=== PATIENT | female | born 1990 | race Caucasian/White ===

== ENCOUNTER 2017-06-12 19:23 | Emergency (ER) | payer SELFPAY | END 2017-06-12 21:36 | disposition home or self-care (01) | LOC: D.ER 19:23 | DX: F41.9 Anxiety disorder, unspecified (principal); S69.91XA Unspecified injury of right wrist, hand and finger(s), initial encounter; X58.XXXA Exposure to other specified factors, initial encounter; Y93.89 Activity, other specified; Y92.029 Unspecified place in mobile home as the place of occurrence of the external cause; F17.200 Nicotine dependence, unspecified, uncomplicated ==

== ENCOUNTER 2017-08-29 10:06 | Emergency (ER) | payer SELFPAY ==
[2017-08-29 10:42] LABS: BASOPHILS 0.4 % (0-2); EOSINOPHILS 3.6 % (0-7); HEMATOCRIT 39.9 % (36.0-48.0); HEMOGLOBIN 14.2 g/dL (12-16); LYMPHOCYTES 26.5 % (15-50); MCHC 35.6 g/dL (31.0-37.0); MCV 89.9 fL (80.0-100.0); MEAN PLATELET VOLUME 9.4 fL (7.4-10.4); MONOCYTES 7.1 % (2-11); NEUTROPHILS 62.4 % (40-80); PLATELET COUNT 206 10x3/uL (130-400); RBC 4.44 10x6/uL (4.00-5.40); RDW 12.1 % (11.5-14.5); WBC 4.9 10x3/uL (4.8-10.8)
[2017-08-29 10:59] LABS: HCG SERUM NEGATIVE (NEGATIVE)
[2017-08-29 11:02] LABS: ALBUMIN 3.8 g/dL (3.4-5.0); ALKALINE PHOSPHATASE 43 U/L (46-116); ALT (SGPT) 22 U/L (10-68); BILIRUBIN - TOTAL 1.26 mg/dL (0.2-1.3); CALC OSMOLALITY 283 mosm/kg (275-300); CALCIUM 8.7 mg/dL (8.5-10.1); CARBON DIOXIDE 28.4 mmol/L (21.0-32.0); CHLORIDE - SERUM 106 mmol/L (98-107); CREATININE - SERUM 0.8 mg/dL (0.6-1.3); GLUCOSE 100 mg/dL (74-106); POTASSIUM - SERUM 4.3 mmol/L (3.5-5.1); SODIUM 142 mmol/L (136-145); UREA NITROGEN 15 mg/dL (7-18); eGFR NON AFRICAN AMERICAN > 90 mL/min (90-120)
[2017-08-29 12:20] LABS: APPEARANCE CLEAR (CLEAR); BILIRUBIN NEGATIVE (NEGATIVE); COLOR YELLOW (YELLOW); GLUCOSE NEGATIVE (NEGATIVE); KETONE NEGATIVE (NEGATIVE); NITRITE NEGATIVE (NEGATIVE); PROTEIN NEGATIVE (NEGATIVE); UROBILINOGEN NORMAL (NORMAL)
[2017-08-29 12:24] LABS: RED CELLS - URINE 0-5 /hpf (0-5)
[2017-08-29 12:25] LABS: BACTERIA FEW /hpf (NONE SEEN); MUCUS >1+ /lpf (NONE SEEN)
[2017-08-29 12:27] LABS: SPERMATOZOA OCC /hpf (NONE SEEN)
== END 2017-08-29 15:40 | disposition home or self-care (01) ==
LOC: D.ER 10:06
PROVIDERS: Emergency Medicine
DX: N83.209 Unspecified ovarian cyst, unspecified side (principal); N73.0 Acute parametritis and pelvic cellulitis

== ENCOUNTER 2017-09-21 21:37 | Emergency (ER) | payer MEDICAID | END 2017-09-22 00:18 | disposition home or self-care (01) | LOC: D.ER 21:37 | DX: R51 Headache (principal) ==

== ENCOUNTER 2017-10-28 00:54 | Emergency (ER) | payer MEDICAID | END 2017-10-28 02:25 | disposition home or self-care (01) | LOC: D.ER 00:54 | DX: R10.2 Pelvic and perineal pain (principal) ==

== ENCOUNTER 2019-06-04 09:29 | Emergency (ER) | payer MEDICAID ==
[~2019-06-04] VITALS: Ht 162.6 cm; Wt 59.1 kg
[2019-06-04 10:08] VITALS: Ht 162.6 cm; Wt 59.1 kg
[2019-06-04] MEDS ORDERED: SKELAXIN800 MG PO (11:36)
[2019-06-04] MEDS ORDERED: NAPROSYN500 MG PO (11:36)
[2019-06-04 11:50] VITALS: BP 110/66
== END 2019-06-04 11:50 | disposition home or self-care (01) ==
LOC: D.ER 09:29
DX: S06.0X9A Concussion with loss of consciousness of unspecified duration, initial encounter (principal); Y09 Assault by unspecified means

== ENCOUNTER 2019-10-23 04:32 | Emergency (ER) | payer MEDICAID ==
[~2019-10-23] VITALS: Ht 162.6 cm; Wt 56.8 kg
[~2019-10-23 04:32] MED LIST: NAPROSYN500 MG PO; SKELAXIN800 MG PO
[2019-10-23 04:36] VITALS: Ht 162.6 cm; Wt 56.8 kg
[2019-10-23 05:15] LABS: BASOPHILS 0.1 % (0-2); EOSINOPHILS 0 % (0-7); HEMATOCRIT 41.9 % (36.0-48.0); HEMOGLOBIN 15.2 g/dL (12-16); IMMATURE GRANULOCYTES 0.1 % (0-5); LYMPHOCYTES 14.1 % (15-50); MCH 31.5 pg (26.0-34.0); MCHC 36.3 g/dL (31.0-37.0); MCV 86.9 fL (80.0-100.0); MEAN PLATELET VOLUME 9.4 fL (7.4-10.4); NEUTROPHILS 82.7 % (40-80); RBC 4.82 10x6/uL (4.00-5.40); RDW 12.2 % (11.5-14.5)
[2019-10-23 05:18] LABS: BILIRUBIN NEGATIVE (NEGATIVE); GLUCOSE NEGATIVE (NEGATIVE); KETONE LARGE mg/dL (NEGATIVE); NITRITE NEGATIVE (NEGATIVE); PLATELET COUNT 258 10x3/uL (130-400); SPECIFIC GRAVITY 1.025 (1.005-1.020); UROBILINOGEN NORMAL (NORMAL)
[2019-10-23 05:20] LABS: AMORPHOUS SEDIMENT >1+ /lpf (NONE SEEN); BACTERIA MANY /hpf (NEGATIVE); EPITHELIAL CELLS 0-5 /hpf (0-5); RED CELLS - URINE 0-5 /hpf (0-5); WHITE CELLS - URINE 0-5 /hpf (NEGATIVE)
[2019-10-23 05:30] LABS: HCG URINE NEGATIVE (NEGATIVE)
[2019-10-23 05:34] LABS: UDS - AMPHET NEGATIVE QUAL (NEGATIVE); UDS - BARB NEGATIVE QUAL (NEGATIVE); UDS - BENZO POSITIVE QUAL (NEGATIVE); UDS - COCAINE NEGATIVE QUAL (NEGATIVE); UDS - OPIATE POSITIVE QUAL (NEGATIVE); UDS - PCP NEGATIVE QUAL (NEGATIVE); UDS - THC POSITIVE QUAL (NEGATIVE)
[2019-10-23 05:38] LABS: CALC OSMOLALITY 277 mosm/kg (275-300); CALCIUM 9.1 mg/dL (8.5-10.1); CARBON DIOXIDE 24.8 mmol/L (21.0-32.0); CHLORIDE - SERUM 100 mmol/L (98-107); CREATININE - SERUM 0.8 mg/dL (0.6-1.3); GLUCOSE 134 mg/dL (74-106); POTASSIUM - SERUM 3.1 mmol/L (3.5-5.1); SODIUM 138 mmol/L (136-145); UREA NITROGEN 13 mg/dL (7-18); eGFR NON AFRICAN AMERICAN 90 mL/min (90-120)
[2019-10-23 05:43] LABS: ALBUMIN 4.3 g/dL (3.4-5.0); ALKALINE PHOSPHATASE 54 U/L (30-120); ALT (SGPT) 13 U/L (10-68); BILIRUBIN - TOTAL 2.25 mg/dL (0.2-1.3); LIPASE 134 U/L (73-393); MAGNESIUM - SERUM 1.9 mg/dL (1.8-2.4)
[2019-10-23] MEDS ORDERED: PHENERGAN25 M1 PO (06:12)
[2019-10-23 08:12] VITALS: BP 113/70
== END 2019-10-23 08:14 | disposition home or self-care (01) ==
LOC: D.ER 04:32
PROVIDERS: Family Medicine
DX: R11.10 Vomiting, unspecified (principal); E87.6 Hypokalemia

== ENCOUNTER 2019-11-21 18:18 | Emergency (ER) | payer MEDICAID ==
[~2019-11-21] VITALS: Ht 162.6 cm; Wt 59.1 kg
[~2019-11-21 18:18] MED LIST changes: +PHENERGAN25 M1 PO
[2019-11-21 18:24] VITALS: Ht 162.6 cm; Wt 59.1 kg
[2019-11-21 18:47] LABS: BILIRUBIN NEGATIVE (NEGATIVE); GLUCOSE NEGATIVE (NEGATIVE); KETONE LARGE mg/dL (NEGATIVE); NITRITE NEGATIVE (NEGATIVE); UROBILINOGEN NORMAL (NORMAL)
[2019-11-21 18:50] LABS: BACTERIA MODERATE /hpf (NEGATIVE); EPITHELIAL CELLS 0-5 /hpf (0-5); RED CELLS - URINE 0-5 /hpf (0-5)
[2019-11-21 18:59] LABS: BASOPHILS 0.1 % (0-2); EOSINOPHILS 0 % (0-7); HEMATOCRIT 41.4 % (36.0-48.0); HEMOGLOBIN 14.6 g/dL (12-16); IMMATURE GRANULOCYTES 0.2 % (0-5); LYMPHOCYTES 5.7 % (15-50); MCH 31.8 pg (26.0-34.0); MCHC 35.3 g/dL (31.0-37.0); MCV 90.2 fL (80.0-100.0); MEAN PLATELET VOLUME 9.2 fL (7.4-10.4); RBC 4.59 10x6/uL (4.00-5.40); RDW 12.3 % (11.5-14.5); WBC 12.9 10x3/uL (4.8-10.8)
[2019-11-21 19:09] LABS: PLATELET COUNT 316 10x3/uL (130-400)
[2019-11-21 19:10] LABS: CALC OSMOLALITY 283 mosm/kg (275-300); CALCIUM 9.5 mg/dL (8.5-10.1); CARBON DIOXIDE 22.3 mmol/L (21.0-32.0); CHLORIDE - SERUM 102 mmol/L (98-107); CREATININE - SERUM 0.9 mg/dL (0.6-1.3); GLUCOSE 133 mg/dL (74-106); POTASSIUM - SERUM 3.7 mmol/L (3.5-5.1); SODIUM 140 mmol/L (136-145); UREA NITROGEN 20 mg/dL (7-18); eGFR NON AFRICAN AMERICAN 79 mL/min (90-120)
[2019-11-21 19:15] LABS: ALBUMIN 4.2 g/dL (3.4-5.0); ALKALINE PHOSPHATASE 65 U/L (30-120); ALT (SGPT) 32 U/L (10-68); PROTEIN - SERUM 8.3 g/dL (6.4-8.2)
[2019-11-21 19:20] LABS: LIPASE 106 U/L (73-393)
[2019-11-21 19:21] LABS: TROPONIN-I < 0.017 ng/mL (0.000-0.060)
[2019-11-21] MEDS ORDERED: DOXYCYCLINE HY100 M2 PO (19:23)
[2019-11-21] MEDS ORDERED: FLAGYL500 MG PO (19:23)
[2019-11-21 19:34] LABS: HCG URINE NEGATIVE (NEGATIVE)
[2019-11-21 19:44] LABS: UDS - AMPHET NEGATIVE QUAL (NEGATIVE); UDS - BARB NEGATIVE QUAL (NEGATIVE); UDS - BENZO NEGATIVE QUAL (NEGATIVE); UDS - COCAINE NEGATIVE QUAL (NEGATIVE); UDS - OPIATE POSITIVE QUAL (NEGATIVE); UDS - PCP NEGATIVE QUAL (NEGATIVE); UDS - THC POSITIVE QUAL (NEGATIVE)
[2019-11-21] MEDS ORDERED: PHENERGAN25 MG RC (20:09)
[2019-11-21 21:03] VITALS: BP 110/72
== END 2019-11-21 21:03 | disposition home or self-care (01) ==
LOC: D.ER 18:18
PROVIDERS: Emergency Medicine; Family Medicine
DX: N39.0 Urinary tract infection, site not specified (principal); A59.03 Trichomonal cystitis and urethritis; R11.2 Nausea with vomiting, unspecified